=== PATIENT | female | born 1970 | race American Indian/Alaskan Native ===

== ENCOUNTER 2020-08-14 09:30 | Emergency (ER) | payer MEDICAID ==
[2020-08-14] MEDS ORDERED: HYDROmorphone 1 MG/1 ML INJ IV ONE ×2 (10:39→12:54)
[2020-08-14] MEDS ORDERED: ONDANSETRON 4 MG/2 ML INJ IV ONE (10:39)
[2020-08-14] MEDS ORDERED: DICYCLOMINE 20 MG/2 ML INJ IM ONE (10:39)
[2020-08-14] MEDS ORDERED: diphenhydrAMINE 50 MG/ML VIAL IV ONE (10:43)
[2020-08-14] MEDS ORDERED: SODIUM CHLORIDE 0.9% 1000 ML 1,000 ML IV ONE (10:47)
--- NOTE | 2020-08-14 10:48 | Emergency Department Report ---
HPI - General Chief Complaint: Abdominal Pain Time Seen by Provider: 08/14/20 10:28 - HPI HPI: Room 18 Patient is a 49-year-old female presenting with a chief complaint of abdominal pain. Patient states her pain developed last night pain in epigastric and left upper quadrant associated with nausea vomiting. Patient denies history of fever or diarrhea. The patient states she is visiting from [place] has a diagnosis of gastroparesis. Patient states she has had the same pain in the past attributed to her gastroparesis ED Past Medical Hx - Past Medical History Hx Hypertension: Yes Hx Diabetes: Yes Additional medical history: GASTOPARESIS, Pancreatitis - Surgical History Hx Cholecystectomy: Yes - Social History Smoking Status: Current Every Day Smoker Substance Use Type: None (Denies illicit drug use) - Medications Home Medications: Home Medications Medication Instructions Recorded Confirmed Last Taken Type AtorvaSTATin [Lipitor] 20 mg PO QHS 06/30/17 06/30/17 06/27/17 History Ferrous Sulfate [Iron 325 MG] 325 mg PO DAILY 06/30/17 06/30/17 Unknown History Gabapentin [Neurontin] 400 mg PO TID 06/30/17 06/30/17 06/29/17 History Insulin Glargine,Hum.rec.anlog 54 unit SQ QHS 06/30/17 06/30/17 Unknown History [Deanar Cherelle U-100] Metformin HCl 850 mg PO BID 06/30/17 06/30/17 06/29/17 History diazePAM [Diazepam] 5 mg PO DAILY PRN 06/30/17 06/30/17 Unknown History hydroCHLOROthiazide [HCTZ] 25 mg PO QDAY 06/30/17 06/30/17 06/27/17 History lisinopriL [Zestril TAB] 20 mg PO QDAY 06/30/17 06/30/17 06/27/17 History Insulin Glargine [Lantus VIAL] 54 units SUB-Q QHS units 07/02/17 Unknown Rx Lispro Insulin [HumaLOG] 0 unit SUB-Q ACHS units 07/02/17 Unknown Rx Metoclopramide [Reglan TAB] 10 mg PO DAILY PRN #60 tablet 07/02/17 Unknown Rx Ondansetron [Zofran TAB] 4 mg PO Q8HR PRN #30 tablet 07/02/17 Unknown Rx Pantoprazole [Protonix] 40 mg PO QDAY #30 tablet 07/02/17 Unknown Rx ED Review of Systems ROS: Stated complaint: NAUSEA/VOMITING Other details as noted in HPI Constitutional: denies: fever Eyes: denies: eye pain ENT: denies: throat pain Respiratory: no symptoms reported Cardiovascular: denies: chest pain Endocrine: no symptoms reported Gastrointestinal: abdominal pain, nausea, vomiting. denies: diarrhea Genitourinary: denies: dysuria Musculoskeletal: denies: back pain Neurological: denies: headache Physical Exam - Physical Exam Vital Signs: Vital Signs 08/14/20 08/14/20 08/14/20 10:01 10:14 10:16 Temperature 98.5 F Pulse Rate 102 H Respiratory 16 Rate O2 Sat by Pulse 96 99 100 Oximetry 08/14/20 10:30 Temperature Pulse Rate Respiratory Rate O2 Sat by Pulse 100 Oximetry Physical Exam: GENERAL: The patient is well-developed well-nourished female writhing in bed occasionally yelling out complaining of pain patient is able to be calm and speak normally at times. [] HEENT: Normocephalic. Atraumatic. Extraocular motions are intact. Patient has moist mucous membranes. NECK: Supple. Trachea midline CHEST/LUNGS: Clear to auscultation. There is no respiratory distress noted. HEART/CARDIOVASCULAR: Regular. There is no tachycardia. There is no gallop rub or murmur. ABDOMEN: Abdomen is soft, but tender to palpation in epigastric and left upper quadrant. There is no guarding. Patient has normal bowel sounds. There is no abdominal distention. SKIN: There is no rash. There is no edema. There is no diaphoresis. NEURO: The patient is awake, alert, and oriented. The patient is cooperative. The patient has no focal neurologic deficits. The patient has normal speech MUSCULOSKELETAL: There is no evidence of acute injury. ED Course Vital Signs 08/14/20 08/14/20 08/14/20 10:01 10:14 10:16 Temperature 98.5 F Pulse Rate 102 H Respiratory 16 Rate O2 Sat by Pulse 96 99 100 Oximetry 08/14/20 10:30 Temperature Pulse Rate Respiratory Rate O2 Sat by Pulse 100 Oximetry ED Medical Decision Making - Lab Data Result diagrams: 08/14/20 11:31 08/14/20 11:31 Laboratory Tests 08/14/20 08/14/20 08/14/20 11:31 11:31 11:31 WBC 18.7 H RBC 5.44 H Hgb 13.6 Hct 42.2 MCV 78 L MCH 25 L MCHC 32 RDW 16.6 H Plt Count 346 Add Manual Diff Complete Total Counted 100 Seg Neutrophils % Product Tester Fiberglass Seg Neuts % (Manual) 95.0 H Band Neutrophils % 1.0 Lymphocytes % (Manual) 3.0 L Basophils % (Manual) 1.0 Nucleated RBC % Not Reportable Seg Neutrophils # Man 17.8 H Band Neutrophils # 0.2 Lymphocytes # (Manual) 0.6 L Abs React Lymphs (Man) 0.0 Monocytes # (Manual) 0.0 Eosinophils # (Manual) 0.0 Basophils # (Manual) 0.2 H Metamyelocytes # 0.0 Myelocytes # 0.0 Promyelocytes # 0.0 Blast Cells # 0.0 WBC Morphology Not Reportable Hypersegmented Neuts Not Reportable Hyposegmented Neuts Not Reportable Hypogranular Neuts Not Reportable Smudge Cells Not Reportable Toxic Granulation Not Reportable Toxic Vacuolation Not Reportable Dohle Bodies Not Reportable Pelger-Huet Anomaly Not Reportable [place] Rods Not Reportable Platelet Estimate Consistent w auto Clumped Platelets Not Reportable Plt Clumps, EDTA Not Reportable Large Platelets Not Reportable Giant Platelets Not Reportable Platelet Satelliting Not Reportable Plt Morphology Comment Not Reportable RBC Morphology Not Reportable Dimorphic RBCs Not Reportable Polychromasia Not Reportable Hypochromasia Few Poikilocytosis Not Reportable Anisocytosis Not Reportable Microcytosis Not Reportable Macrocytosis Not Reportable Spherocytes Not Reportable Pappenheimer Bodies Not Reportable Sickle Cells Not Reportable Target Cells Not Reportable Tear Drop Cells Not Reportable Ovalocytes Not Reportable Helmet Cells Not Reportable [place] Bodies Not Reportable [place] Rings Not Reportable [place] Cells Not Reportable Bite Cells Not Reportable Crenated Cell Not Reportable Elliptocytes Not Reportable Acanthocytes (Spur) Not Reportable Rouleaux Not Reportable Hemoglobin C Crystals Not Reportable Schistocytes Not Reportable Malaria parasites Not Reportable Sohan Bodies Not Reportable Hem Pathologist Commnt No VBG pH Sodium 134 L Potassium 4.9 Chloride 96.4 L Carbon Dioxide 24 Anion Gap 19 BUN 18 H Creatinine 1.1 Estimated GFR > 60 BUN/Creatinine Ratio 16 Glucose 360 H Calcium 9.4 Total Bilirubin 0.90 AST 16 ALT 19 Alkaline Phosphatase 109 Total Protein 7.4 Albumin 4.1 Albumin/Globulin Ratio 1.2 Lipase 49 Urine Color Urine Turbidity Urine pH Ur Specific Given Urine Protein Urine Glucose (UA) Urine Ketones Urine Blood Urine Nitrite Urine Bilirubin Urine Urobilinogen Ur Leukocyte Esterase Urine WBC (Auto) Urine RBC (Auto) U Epithel Cells (Auto) Urine Bacteria (Auto) 08/14/20 08/14/20 13:11 13:38 WBC RBC Hgb Hct MCV MCH MCHC RDW Plt Count Add Manual Diff Total Counted Seg Neutrophils % Seg Neuts % (Manual) Band Neutrophils % Lymphocytes % (Manual) Basophils % (Manual) Nucleated RBC % Seg Neutrophils # Man Band Neutrophils # Lymphocytes # (Manual) Abs React Lymphs (Man) Monocytes # (Manual) Eosinophils # (Manual) Basophils # (Manual) Metamyelocytes # Myelocytes # Promyelocytes # Blast Cells # WBC Morphology Hypersegmented Neuts Hyposegmented Neuts Hypogranular Neuts Smudge Cells Toxic Granulation Toxic Vacuolation Dohle Bodies Pelger-Huet Anomaly [place] Rods Platelet Estimate Clumped Platelets Plt Clumps, EDTA Large Platelets Giant Platelets Platelet Satelliting Plt Morphology Comment RBC Morphology Dimorphic RBCs Polychromasia Hypochromasia Poikilocytosis Anisocytosis Microcytosis Macrocytosis Spherocytes Pappenheimer Bodies Sickle Cells Target Cells Tear Drop Cells Ovalocytes Helmet Cells [place] Bodies [place] Rings [place]erson Cells Bite Cells Crenated Cell Elliptocytes Acanthocytes (Spur) Rouleaux Hemoglobin C Crystals Schistocytes Malaria parasites Sohan Bodies Hem Pathologist Commnt VBG pH 7.425 H Sodium Potassium Chloride Carbon Dioxide Anion Gap BUN Creatinine Estimated GFR BUN/Creatinine Ratio Glucose Calcium Total Bilirubin AST ALT Alkaline Phosphatase Total Protein Albumin Albumin/Globulin Ratio Lipase Urine Color Yellow Urine Turbidity Slightly-cloudy Urine pH 7.0 Ur Specific Given 1.013 Urine Protein 100 mg/dl Urine Glucose (UA) >=500 Urine Ketones 20 Urine Blood Neg Urine Nitrite Neg Urine Bilirubin Neg Urine Urobilinogen < 2.0 Ur Leukocyte Esterase Neg Urine WBC (Auto) 4.0 Urine RBC (Auto) 2.0 U Epithel Cells (Auto) 2.0 Urine Bacteria (Auto) 1+ - Radiology Data Radiology results: report reviewed (CT abdomen pelvis), image reviewed (CT abdomen pelvis) [facility] [address] [place] [address] Cat Scan Report Signed Patient: WILFREDO CANCINO MR#: [id number] : 1970 Acct:[id number] Age/Sex: 49 / F ADM Date: 08/14/20 Loc: ED Attending Dr: Ordering Physician: ISRAEL GAMA MD Date of Service: 08/14/20 Procedure(s): CT abdomen pelvis w con Accession Number(s): [id number] cc: ISRAEL GAMA MD CT ABDOMEN AND PELVIS WITH CONTRAST INDICATION / CLINICAL INFORMATION: Epigastric and left upper quadrant pain. TECHNIQUE: Axial CT images were obtained through the abdomen and pelvis after 100 cc Omnipaque [address] scans at this location are performed using CT dose reduction for ALARA by means of automated exposure control. COMPARISON: CT abdomen and pelvis with contrast from 06/30/2017 FINDINGS: LOWER CHEST: No significant abnormality. LIVER: There is generalized steatosis without other significant abnormalities. GALLBLADDER: Prior cholecystectomy. BILE DUCTS: No significant abnormality. PANCREAS: No significant abnormality. SPLEEN: No significant abnormality. ADRENALS: No significant abnormality. RIGHT KIDNEY / URETER: There is similar mild right perinephric fat stranding without other significant abnormalities. LEFT KIDNEY / URETER: There is similar mild left perinephric fat stranding without other significant abnormalities. STOMACH / SMALL BOWEL: There is an uncomplicated small hiatal hernia without other significant abnormalities of the stomach. No significant abnormality of the small bowel. COLON: No significant abnormality. APPENDIX: No significant abnormality. PERITONEUM: No free fluid. No free air. No fluid collection. LYMPH NODES: No significant adenopathy. AORTA / ARTERIES: The aorta is normal in caliber with mild generalized atherosclerosis. IVC / VEINS: No significant abnormality. URINARY BLADDER: There is nonspecific mild generalized bladder wall thickening without significant surrounding inflammation or other significant abnormalities. REPRODUCTIVE ORGANS: No significant abnormality. ADDITIONAL FINDINGS: None. SKELETAL SYSTEM: No significant abnormality. IMPRESSION: 1. No acute findings to explain the patient's pain. 2. Mild bladder wall thickening could be secondary to underdistention. Cystitis is a less likely consideration. Please correlate with clinical findings. 3. Additional findings as above. Signer Name: Shai Jarvis MD Signed: 08/14/2020 2:05 PM Workstation Name: [id number] Transcribed By: [place] Dictated By: Shai Jarvis MD Electronically Authenticated By: Shai Jarvis MD Signed Date/Time: 08/14/20 1405 DD/ 1400 TD/TT: Print Cancel - Differential Diagnosis Gastroparesis, pancreatitis, gastritis, UTI, diverticulitis Critical care attestation.: If time is entered above; I have spent that time in minutes in the direct care of this critically ill patient, excluding procedure time. ED Disposition Clinical Impression: Acute abdominal pain, Gastroparesis Disposition: OP ADMIT IP TO THIS HOSP Is pt being admited?: Yes Does the pt Need Aspirin: No Condition: Fair Instructions: Abdominal Pain (ED) Referrals: PRIMARY CARE, [Primary Care Provider] - 3-5 Days Time of Disposition: 16:03 (Hospitalist notified (Dr Amaya))
[2020-08-14 12:01] LABS: Hematocrit 42.2 % (30.3-42.9); Hemoglobin 13.6 gm/dl (10.1-14.3); Mean Corpuscular HGB Conc 32 % (30-34); Mean Corpuscular Volume 78 fl (79-97); Platelet Count 346 K/mm3 (140-440); Red Blood Count 5.44 M/mm3 (3.65-5.03); Red Cell Distribution Width 16.6 % (13.2-15.2)
[2020-08-14 12:33] LABS: Alanine Aminotransferase 19 units/L (7-56); Albumin 4.1 g/dL (3.9-5); BUN/Creatinine Ratio 16; Blood Urea Nitrogen 18 mg/dL (7-17); Calcium 9.4 mg/dL (8.4-10.2); Hemolysis Index 2
[2020-08-14] MEDS ORDERED: HALOPERIDOL LACTATE 5 MG/1 ML INJ IM ONE (13:14)
[2020-08-14 13:29] LABS: Bacteria,Urine 1+ /HPF (Negative); Bilirubin,Urine NEG (Negative); Blood,Urine NEG (Negative); Color,Urine Yellow (Yellow); Urobilinogen,Urine < 2.0 mg/dL (<2.0)
--- NOTE | 2020-08-14 14:10 | Cat Scan Report ---
CT ABDOMEN AND PELVIS WITH CONTRAST INDICATION / CLINICAL INFORMATION: Epigastric and left upper quadrant pain. TECHNIQUE: Axial CT images were obtained through the abdomen and pelvis after 100 cc Omnipaque [address] scans at this location are performed using CT dose reduction for ALARA by means of automated exposure control. COMPARISON: CT abdomen and pelvis with contrast from 06/30/2017 FINDINGS: LOWER CHEST: No significant abnormality. LIVER: There is generalized steatosis without other significant abnormalities. GALLBLADDER: Prior cholecystectomy. BILE DUCTS: No significant abnormality. PANCREAS: No significant abnormality. SPLEEN: No significant abnormality. ADRENALS: No significant abnormality. RIGHT KIDNEY / URETER: There is similar mild right perinephric fat stranding without other significan t abnormalities. LEFT KIDNEY / URETER: There is similar mild left perinephric fat stranding without other significant abnormalities. STOMACH / SMALL BOWEL: There is an uncomplicated small hiatal hernia without other significant abnorm alities of the stomach. No significant abnormality of the small bowel. COLON: No significant abnormality. APPENDIX: No significant abnormality. PERITONEUM: No free fluid. No free air. No fluid collection. LYMPH NODES: No significant adenopathy. AORTA / ARTERIES: The aorta is normal in caliber with mild generalized atherosclerosis. IVC / VEINS: No significant abnormality. URINARY BLADDER: There is nonspecific mild generalized bladder wall thickening without significant dominguez rrounding inflammation or other significant abnormalities. REPRODUCTIVE ORGANS: No significant abnormality. ADDITIONAL FINDINGS: None. SKELETAL SYSTEM: No significant abnormality. IMPRESSION: 1. No acute findings to explain the patient's pain. 2. Mild bladder wall thickening could be secondary to underdistention. Cystitis is a less likely cons ideration. Please correlate with clinical findings. 3. Additional findings as above. Signer Name: Shai Jarvis MD Signed: 08/14/2020 2:05 PM Workstation Name: [id number]
[2020-08-14 14:30] LABS: Band Neutrophils # (Manual) 0.2 K/mm3; Hypochromasia Few; Platelet Estimate Consistent w Auto; Total Cells Counted 100
[2020-08-14] MEDS ORDERED: METOCLOPRAMIDE 10 MG/2 ML INJ IV ONE (15:13)
[2020-08-14 17:31] VITALS: BP 183/99
== END 2020-08-14 17:31 | disposition home or self-care (01) ==
LOC: ED 09:30
DX: K31.84 Gastroparesis (principal); F17.200 Nicotine dependence, unspecified, uncomplicated; Z79.899 Other long term (current) drug therapy; Z98.890 Other specified postprocedural states
CPT/HCPCS: 36415; 74177; 80053; 81001; 82805; 83690; 85007; 85025; 96361; 96372; 96374; 96375; 96376; 99284; J1170; J1200; J1630; J2405; J2765; J7030; Q9967; J0500